=== PATIENT | male | born 1995 | race Hispanic/Latino ===

== ENCOUNTER 2016-11-12 12:55 | Emergency (ER) | payer OTHER ==
[~2016-11-12] VITALS: Ht 177.8 cm; Wt 65.8 kg
[2016-11-12 13:03] VITALS: BP 145/85
--- NOTE | 2016-11-12 13:12 | ED GI/GU/ABDOMINAL COMPLAINT ---
History of Present Illness General Chief Complaint: Nausea, Vomiting, Diarrhea Stated Complaint: NAUSEA, HAND NUMBNESS Source: patient, old records Exam Limitations: no limitations Vital Signs & Intake/Output Vital Signs & Intake/Output Vital Signs Date Time Temp Pulse Resp B/P Pulse O2 O2 Flow FiO2 Ox Delivery Rate 11/12 1303 99.2 114 18 145/85 99 Room Air Room Air Allergies Coded Allergies: NO KNOWN ALLERGIES (12/21/13) Reconcile Medications Ondansetron (Zofran Odt) 4 MG TAB.RAPDIS 1 TAB SL TID nausea Triage Note: TRIAGE: 21 Y/O MALE PRESENTS C/O NAUSEA AND HAND NUMBNESS SINCE THIS MORNING. PATIENT REPORTS +NAUSEA NAD +VOMITING LAST NIGHT. NO EPISODES OF VOMITING TODAY. Triage Nurses Notes Reviewed? yes Onset: Abrupt Duration: day(s): (1), constant Timing: recent history Quality/Severity: nausea Severity Numbers: 4 Location: generalized abdomen Radiation: no radiation Activities at Onset: none Prior Abdominal Problems: none No Modifying Factors: none Associated Symptoms: tingling in hands HPI: 21-year-old male with no medical history presents to emergency room for evaluation complaining of nausea and vomiting multiple episodes last night. He states that he woke up this morning and was feeling slightly better so went to work when he was at work he developed sudden onset of tingling numbness in his face and bilateral hands. He states his symptoms have resolved and his face however persist in his hands. There's been no recent injury or trauma. He denies any numbness anywhere else on his body no difficulty with tandem mill roller strength no weakness. There's been no recent fall or trauma there is no diarrhea no abdominal pain no chest pain fever chills. He reports his niece is been home sick with similar symptoms. Has not taken anything for his symptoms today no black or bloody stools no hematemesis. (BO BRICENO) Past History Travel History Traveled to [place] past 21 day No Medical History Any Pertinent Medical History? none Neurological: NONE EENT: NONE Cardiovascular: NONE Respiratory: NONE Gastrointestinal: NONE Hepatic: NONE Renal: NONE Musculoskeletal: NONE Psychiatric: NONE Endocrine: NONE Blood Disorders: NONE Cancer(s): NONE PROGRAMMING ENGINEER/Reproductive: NONE Surgical History Surgical History: none Psychosocial History What is your primary language Gabonese Tobacco Use: Never used ETOH Use: denies use Illicit Drug Use: denies illicit drug use Family History Hx Contributory? No (BO BRICENO) Review of Systems Review of Systems Constitutional: Reports: see HPI. All Other Systems: Reviewed and Negative Comments Review of systems: See HPI, All other systems negative. Constitutional, no chills no fever, no malaise HEENT: No visual changes no sore throat no congestion Cardiovascular: No chest pain , no palpitation Skin, no jaundice no rashes, no change in skin Respiratory: No dyspnea no cough no sputum GI: nausea no vomiting, no diarrhea : No dysuria Muscle skeletal: No joint pain, no joint swelling, no back pain, no neck pain, Neurologic: , no headache Psych: No stress Heme/endocrine: No bruising no bleeding Immunology: No lymphadenopathy (BO BRICENO) Physical Exam Physical Exam General Appearance: well developed/nourished, no apparent distress, alert, awake , comfortable Gastrointestinal: normal bowel sounds, soft, non-tender Comments: Well-developed well-nourished person in no acute distress HEENT: Normal EENT exam; PERRL, EOMI, HEAD is atraumatic. moist mucous membranes. Neck: Supple, normal range of motion Back: Nontender, Full range of motion Cardiovascular: Regular rate and rhythms no murmurs Respiratory: Chest nontender.There were no bony deformities, no asymmetry. No respiratory distress. Patient speaking in full complete sentences. Breath sounds clear to auscultation bilaterally: NO W/R/R Abdomen: Soft, nontender nondistended, no appreciable organomegaly. Normal bowel sounds. No rebound/guarding, No ascites. Extremity: No edema, full range of motion of extremities, normal and equal pulses bilaterally, 5 out of 5 strength noted to bilateral upper and lower extremities Neuro: Alert oriented x3, motor sensory normal, There were no obvious focal neurologic abnormalities. Skin: No appreciable rash on exposed skin, skin is warm and dry. Psych: Mood and affect is normal, memory and judgment is normal. Core Measures ACS in differential dx? No Severe Sepsis Present: No Septic Shock Present: No (BO BRICENO) Progress Differential Diagnosis: appendicitis, biliary colic, bowel obstruction, cholecystitis, diverticulitis, inflamm bowel dis, pancreatitis, dehydration, gastroenteritis, electrolyte abnormality Plan of Care: Orders Procedure Date/time Status CBC WITHOUT DIFFERENTIAL 11/12 1316 Complete BASIC METABOLIC PANEL 11/12 1316 Complete Laboratory Tests 11/12/16 1325: Anion Gap 11, Estimated GFR > 60, BUN/Creatinine Ratio 15.0, Glucose 103 H, Calcium 9.6, CBC w Diff NO MAN DIFF REQ, RBC 5.31, MCV 84.9, MCH 28.4, RDW 13.6, MPV 8.9, Gran % 88.1 H, Lymphocytes % 6.1 L, Monocytes % 5.6, Eosinophils % 0.1, Basophils % 0.1, Absolute Granulocytes 9.9 H, Absolute Lymphocytes 0.7 L, Absolute Monocytes 0.6, Absolute Eosinophils 0, Absolute Basophils 0, PUBS MCHC 33.5 Labs ordered old records reviewed patient medicated IV fluids Zofran 11/12/2016 2:15:55 PMRepeat evaluation patient is feeling improved numbness has resolved his had no episodes of nausea or vomiting here tolerating by mouth I discussed with mentally altered lab results need for supportive care bland diet clear liquids prescription for Zofran provided closed follow-up with his primary care physician return anytime sooner if symptoms worsen he feels comfortable this plan (BO BRICENO) Initial ED EKG: none (BO BRICENO) Departure Departure Time of Disposition: 3 Disposition: HOME OR SELF CARE Condition: Stable Clinical Impression Primary Impression: Dehydration Secondary Impressions: Nausea & vomiting Referrals: RISHABH SKINNER (PCP/Family) Additional Instructions: zofran if needed for nausea. bland diet, clear liquids. follow up with your primary care physician next week. return with any concerns Departure Forms: Customer Survey General Discharge Information Prescriptions: Current Visit Scripts Ondansetron (Zofran Odt) 1 TAB SL TID #10 TAB (BO BRICENO) PA/PROGRAMMING ENGINEER Co-Sign Statement Statement: ED Attending supervision documentation- [] I saw and evaluated the patient. I have also reviewed all the pertinent lab results and diagnostic results. I agree with the findings and the plan of care as documented in the PA's/PROGRAMMING ENGINEER's documentation. [X] I have reviewed the ED Record and agree with the PA's/PROGRAMMING ENGINEER's documentation. [] Additions or exceptions (if any) to the PAs/PROGRAMMING ENGINEER's note and plan are summarized below: [] (DARION ALMEIDA,MIKAYLA Allison)
[2016-11-12 13:51] LABS: ABSOLUTE BASOPHIL COUNT 0 /CUMM (0.0-0.2); ABSOLUTE EOSINOPHIL COUNT 0 /CUMM (0.0-0.7); ABSOLUTE GRANULOCYTE CT 9.9 /CUMM (1.4-6.5); ABSOLUTE LYMPH COUNT 0.7 /CUMM (1.2-3.4); ABSOLUTE MONOCYTE COUNT 0.6 /CUMM (0.10-0.60); BASOPHIL % 0.1 % (0.0-2.0); EOSINOPHIL % 0.1 % (0-5); GRANULOCYTE % 88.1 % (42.2-75.2); HEMATOCRIT 45.1 % (42-52); MEAN CORPUSCULAR HGB 28.4 PG (27.0-31.0); MEAN CORPUSCULAR HGB CONC 33.5 G/DL (33.0-37.0); MEAN CORPUSCULAR VOLUME 84.9 FL (80.0-94.0); MEAN PLATELET VOLUME 8.9 FL (7.4-10.4); PLATELET COUNT 199 /CUMM (130-400); RBC DISTRIBUTION WIDTH 13.6 % (11.5-14.5); RED BLOOD CELL CT 5.31 /CUMM (4.70-6.10); WHITE BLOOD CELL COUNT 11.2 /CUMM (4.8-10.8)
[2016-11-12] MEDS ORDERED: ZOFRAN ODT4 M1 SL (14:14)
== END 2016-11-12 14:55 ==
LOC: ERH 12:55
PROVIDERS: Physician Assistant Medical
DX: E86.0 Dehydration (principal); R11.2 Nausea with vomiting, unspecified
CPT/HCPCS: 96361; 96374; J2405